=== PATIENT | male | born 1965 | race Caucasian/White ===

== ENCOUNTER → 2017-10-20 | Outpatient (CLI) | payer OTHER | LOC: FIMAGING 09:50 | PROVIDERS: ATTEND Specialist | DX: C61 Malignant neoplasm of prostate (principal) | CPT/HCPCS: A9503 ==

== ENCOUNTER 2017-12-08 06:58 | Inpatient (IN) | payer OTHER ==
--- NOTE | 2017-12-07 14:43 | GHP ---
[f rep st] PREOP HISTORY AND PHYSICAL ADMISSION DIAGNOSIS: Adenocarcinoma of the prostate. HISTORY OF PRESENT ILLNESS: This is a 52-year-old gentleman who is referred because of an elevated PSA that was 8.7 as of 10/05/2017. He had lower urinary tract symptoms on a 2/10 scale and nocturia 1 time per night. He has had a family history of prostate cancer in his father, who was diagnosed with it in his 80s. The patient has had an AUA score index of 3. He has had a transrectal ultrasound and biopsy of the prostate, and the ultrasound as of 03/2018 showed his prostate volume was 20.6. He had a Whitney score 10 prostate cancer. He has had an MRI at 10/26/2017 that was PIRADS 1. He has had a PSA density of 0.43, and a bone scan 10/20/2017 that was normal. At the present time, he is admitted for bilateral pelvic lymphadenectomy and robotic assisted radical prostatectomy. I reviewed all the tests with him. He and his appear to be well informed, and will undergo treatment. He has had Firmagon use as androgen deprivation therapy because of his high Wally score. SOCIAL HISTORY: He is a nondrinker, a former smoker. He is . ALLERGIES: None. MEDICATIONS: Include aspirin and multivitamins. PAST SURGERY HISTORY: Knee surgery, and the transrectal ultrasound biopsy of the prostate. REVIEW OF SYSTEMS: Negative cardiac, respiratory, GI and endocrine. PHYSICAL EXAMINATION: VITAL SIGNS: Stable. CHEST: Clear. HEART: Regular rate and rhythm. ABDOMEN: Normal, no organomegaly, rebound or guarding. LOWER EXTREMITIES: Normal. RECTAL: On rectal exam, it was showing that he had left greater than right side on the prostate with the asymmetry and subtle nodule and firmness noted in the left lobe. ASSESSMENT/PLAN: The pathology revealed that all cores of the left side of the prostate had cancer and it was a WHO grade group 5, Wally 5 + 5 equals 10 in 50% of the tumor in the left base, 30% left mid prostate. In the right apex, he had 2% of the tumor and the left apex 50% of the lesion was noted, and left transition zone 70% of the biopsy had cancer in it. At the present time, he is admitted for bilateral pelvic lymphadenectomy and robotic assisted radical prostatectomy. Indications, complications, and options have been discussed in detail. He appears to be well informed and will undergo the above procedure. /[id number]/MODL MTDD
[~2017-12-08 06:58] MED LIST: LIDOCAINE 1% 2 ML INJ ID PRN; LR 1,000 ML IV ONE; ceFAZolin 2 GM/SWFI 2 GM/20 ML SYR IVP ONE
--- NOTE | 2017-12-08 07:02 | PDHPUP ---
History & Physical Update H&P update statement: This history and physical update is based on an assessment of the patient which was completed after admission or registration (within 24 hours), but prior to the surgery/procedure. H&P update: H&P reviewed & patient examined, no change in patient's condition since H&P completed
--- NOTE | 2017-12-08 07:56 | PDANEPAE ---
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 ANE Past Medical History - Cardiovascular History Hx Hypertension: No Hx Arrhythmias: No Hx Chest Pain: No Hx Coronary Artery / Peripheral Vascular Disease: No Hx CHF / Valvular Disease: No Hx Palpitations: No - Pulmonary History Hx COPD: No Hx Asthma/Reactive Airway Disease: No Hx Recent Upper Respiratory Infection: No Hx Oxygen in Use at Home: No Hx Sleep Apnea: No Sleep Apnea Screening Result - Last Documented: Negative - Neurologic History Hx Cerebrovascular Accident: No Hx Seizures: No Hx Dementia: No - Endocrine History Hx Diabetes: No - Renal History Hx Renal Disorders: No - Liver History Hx Hepatic Disorders: No - Neurological & Psychiatric Hx Hx Neurological and Psychiatric Disorders: Yes Neurological / Psychiatric History Comment: ANXIETY - Cancer History Hx Cancer: Yes Cancer History Comment: PROSTATE CANCER - Congenital Disorder History Hx Congenital Disorders: No - GI History Hx Gastrointestinal Disorders: No - Other Health History Other Health History: LL varicose veins - Chronic Pain History Chronic Pain: No - Surgical History Prior Surgeries: biopsy ANE Review of Systems Review of Systems: - Exercise capacity METS (RN): 6 METS ANE Patient History - Allergies Allergies/Adverse Reactions: No Known Allergies Allergy (Verified 11/09/17 12:31) - Home Medications Home Medications: C/E/Zn/Cu/OM3/DHA/EPA/LUT/ZEAX [Preservision Areds 2 Softgel] 1 each PO DAILY [Last Taken 12/01/17] Cholecalciferol Vit D3 [Vitamin D3 (*)] 1,000 units PO DAILY 11/09/17 [Last Taken 12/01/17] Glucosamine Sulfate [Glucosamine Sulfate 500 MG (*)] 1,000 mg PO DAILY 11/09/17 [Last Taken 12/01/17] Herbals/Supplements -Info Only 1 ea PO DAILY 11/09/17 [Last Taken 12/01/17] Ibuprofen [Motrin (*)] 200 mg PO DAILY PRN 11/09/17 [Last Taken 12/01/17] Leuprolide Acetate [Lupron Depot (Lupaneta)] 22.5 mg IM Q91D 11/09/17 [Last Taken 10/27/17] Multivitamins [Multivitamin (*)] 1 each PO DAILY 11/09/17 [Last Taken 12/04/17] - NPO status NPO Status: no food or drink >8 hours NPO Since - Liquids (Date): 12/07/17 NPO Since - Liquids (Time): 00:59 NPO Since - Solids (Date): 12/07/17 NPO Since - Solids (Time): 23:30 - Anes Hx Anes Hx: no prior problems - Smoking Hx Smoking Status: Former smoker - Alcohol Use Alcohol Use: None - Family Anes Hx Family Anes Hx: none Family Hx Anesthesia Complications: none ANE Labs/Vital Signs - Vital Signs Blood Pressure: 118/72 Heart Rate: 66 Respiratory Rate: 16 O2 Sat (%): 97 Height: 177.8 cm Weight: 72.575 kg ANE Physical Exam - Airway Neck exam: FROM Mallampati Score: Class 2 Mouth exam: normal dental/mouth exam - Pulmonary Pulmonary: no respiratory distress, clear to auscultation - Cardiovascular Cardiovascular: regular rate and rhythym, no murmur, rub, or gallop - ASA Status ASA Status: II ANE Anesthesia Plan Anesthesia Plan: general endotracheal anesthesia
[2017-12-08] MEDS ORDERED: MIDAZOLAM 2 MG/2 ML VIAL IVP ONE (07:57)
[2017-12-08] MEDS ORDERED: fentaNYL 100 MCG/2 ML INJ ONE ×3 (08:00→11:31)
[2017-12-08] MEDS ORDERED: PROPOFOL 200 MG/20 ML VIAL ONE (08:00)
[2017-12-08] MEDS ORDERED: BUPIVACAINE 0.5% 30 ML SDV ONE (08:07)
[2017-12-08] MEDS ORDERED: ROCURONIUM 50 MG/5 ML VIAL ONE (09:18)
[2017-12-08] MEDS ORDERED: LIDOCAINE 2% 100 MG/5 ML SYR ONE (09:18)
[2017-12-08] MEDS ORDERED: ROCURONIUM 100 MG/10 ML VIAL ONE (09:18)
[2017-12-08] MEDS ORDERED: DEXAMETHASONE 4 MG/ML VIAL ONE (09:29)
[2017-12-08] MEDS ORDERED: ONDANSETRON 4 MG/2 ML VIAL ONE (09:29)
[2017-12-08] MEDS ORDERED: THROMBIN(HUM PLAS)/FIBRINOG/CA 5 ML VIAL TP ONE (10:24)
[2017-12-08] MEDS ORDERED: SUGAMMADEX SODIUM 200 MG/2 ML VIAL IVP ONE (11:00)
[2017-12-08] MEDS ORDERED: NALOXONE HCL 0.4 MG/ML INJ IVP PRN ×2 (11:23→11:46)
[2017-12-08] MEDS ORDERED: HYDROCODONE/APAP 5/325 TAB PO PRN (11:23)
[2017-12-08] MEDS ORDERED: ONDANSETRON 4 MG/2 ML VIAL IVP PRN ×2 (11:23→11:42)
[2017-12-08] MEDS ORDERED: OXYCODONE/APAP 5/325 TAB PO PRN (11:23)
[2017-12-08] MEDS ORDERED: ACETAMINOPHEN 500 MG TAB PO PRN (11:23)
--- NOTE | 2017-12-08 11:24 | POSTANESTH ---
Post Anesthetic Evaluation Cardiovascular Status: Normal, Stable, Similar to Pre-Op Cond Respiratory Status: Normal, Stable, Similar to Pre-op Cond. Level of Consciousness/Mental Status: Can Participate in Eval, Alert and Oriented Pain Control: Adequate, Prn Tx Ordered Nausea/Vomiting Control: Adequate, Prn Tx Ordered Complications Possibly Related to Anesthesia: None Noted
[2017-12-08] MEDS: fentaNYL 100 MCG/2 ML INJ IVP PRN ×2 (11:32→11:47)
[2017-12-08] MEDS ORDERED: ACETAMINOPHEN 325 MG TAB PO PRN (11:42)
[2017-12-08] MEDS ORDERED: ONDANSETRON DISINTEGRATING 4 MG TAB PO PRN (11:42)
[2017-12-08] MEDS ORDERED: ZOLPIDEM TARTRATE 5 MG TAB PO PRN (11:42)
--- NOTE | 2017-12-08 11:48 | POSTOPPROG ---
Post Op Note Date of Operation: 12/08/17 Surgeon: Tevin Garber Bleacher Sulfite Pulp: Ric Anesthesiologist: Zuleima Anesthesia: GET(General Endotracheal) Pre-op Diagnosis: prostate cancer Procedure: RA RRP and PLND Inf/Abcess present in the surg proc area at time of surgery?: No EBL: 50-100 Complications: none Drains: Oj Chicas Specimen(s): sent, dictated op note
--- NOTE | 2017-12-08 11:53 | GOP ---
[f rep st] OPERATIVE REPORT DATE OF OPERATION: 12/08/2017 SURGEON: Tevin Garber MD CUSTOMER SERVICE ADVOCATE: Christina Larios CFA. ANESTHESIA: General anesthesia. PREOPERATIVE DIAGNOSIS: Adenocarcinoma of the prostate. POSTOPERATIVE DIAGNOSIS: Adenocarcinoma of the prostate, with hormonal androgen deprivation therapy. PROCEDURE PERFORMED: FINDINGS: INDICATIONS: This gentleman had a [place] score 10 prostate cancer and we reviewed all of his option s and at the present time he is undergoing bilateral pelvic lymphadenectomy and radical retropubic pr ostatectomy. Indication, complications, and options discussed. He is well-informed. Tried to answe r all of his questions to best of my ability. DESCRIPTION OF PROCEDURE: After general anesthesia and being prepped and draped in normal sterile fa shion in the standard robot position, the intraabdominal space was insufflated with a Veress needle t o 15 mmHg pressure of CO2, and then three 8 mm ports and a 12 mm port were placed Strategically for t he life science research assistant and the robot arms, and then at that point I did a posterior approach initially by ident ifying the vas deferens, went into the prostate, dissect the peritoneum over that and then dissected the anterior, cut in between the rectum and prostate, Denonvilliers fascia and fat plane and dissecte d out that and then the ampulla vas deferens were transected after electrocautery and hemostasis was noted. The ampulla vas deferens dissected out on both the right and left sides and Hem-o-kodak's were used for hemostasis. At that point dropped the bladder down in the standard fashion and identified t he endopelvic fascia which was incised and opened. The puboprostatic's were taken down sharply. It should be said he had a lot of kind of fibrous inflammation on the left apical side, but the dissecti on grossly appeared to be free of any tumor. Then, at that point, the deep dorsal vein was ligated w ith 0 Vicryl M-stitch. Hemostasis was noted. Then transected the bladder neck. Brought the seminal vesicle ampulla anterior to the bladder neck opening and made meticulous care not to buttonhole the left bladder neck area, because on the ultrasound it appeared that the tumor abutted the bladder neck . It did not appear to invade into the detrusor muscle and during the dissection tried to make sure that there was normal-appearing tissue and tried to leave nothing suggestive of grossly to the bladder neck and then carried the dissection out lateral on the left side. Hem-o-kodak's were use d for hemostasis and then on the right side similar procedure was done and, then at that point, I tra nsected the apical part of the prostate from the urethra and once again tried to make meticulous care not to leave any gross disease behind and so the margins grossly looked clear. At that point, the R occo stitch was utilized of a V-loc and then the anastomosis performed with 4-0 Monocryl. It was christal guido watertight, bridged with a Medrano catheter and irrigated clear. The pelvic lymph node dissection was carried out on both the right and left sides robotically, using dissection margin of the external iliac vein up to its bifurcation down to the dissection was to the obturator nerve. There was no ne ural vascular trauma encountered during this procedure. Hemostasis and provided with Hem- o-kodak's. Grossly the nodes appeared to have no malignancy. At that point, brought the specimens out through a bag and that bag eventually was brought out through the midline camera port. I did place a Oj-Chicas drain in the space of Retzius and Evicel was used to reinforce the urethrovesical franco stomosis. He tolerated the procedure well. Estimated blood loss of 100 mL per anesthesia assessment and specimen sent to Pathology. When I grossly looked at the specimen there did not appear to be an y gross disease beyond the prostate and seminal vesicles appeared to be palpably normal. At that poi nt, the specimen bag was brought out through the camera port. We did do a fascial closure device of the life science research assistant port with an 0 Vicryl. The anterior rectus sheath was approximated with a running 0 Vi cryl. The subcutaneous tissue was hemostatic and skin was closed with 4-0 Monocryl and Marcaine was used for local field block. Drain was sewn in place with a 3-0 silk. He tolerated the procedure wel l. He will be admitted for postoperative care. I will discuss the findings with his family. /[id number]/MODL
[2017-12-08] MEDS ORDERED: HYDROmorphONE/DILAUDID 1 MG/ML INJ ONE (12:02)
[2017-12-08] MEDS: HYDROmorphONE/DILAUDID 1 MG/ML INJ IVP PRN ×2 (12:03→12:29)
[2017-12-08 12:32] LABS: PLATELET COUNT 208 10^3/uL (150-400)
[2017-12-08] MEDS: D5W 1/2 NS W/ 20 KCl/L 1,000 ML IV SCH ×2 (14:04→23:42)
[2017-12-08] MEDS: HYDROmorphONE/DILAUDID 6 MG/30 ML PCA IV PRN (14:04)
[2017-12-09] MEDS: D5W 1/2 NS W/ 20 KCl/L 1,000 ML IV SCH ×2 (09:19→19:18)
[2017-12-09] MEDS: HYDROmorphONE/DILAUDID 6 MG/30 ML PCA IV PRN (09:59)
--- NOTE | 2017-12-09 16:45 | ASMTCMCOM ---
CM Note CM Note Notes: Current Discharge Plan: Likely home independently. Reviewed patient's chart for discharge planning needs. Patient has very supportive , both very informed. Anticipate patient will be able to discharge home independently with support of family. Case Management available for any changes/needs. Date Signed: 12/09/2017 04:44 PM Electronically Signed By:Agnieszka Camacho RN
--- NOTE | 2017-12-09 18:23 | SOAPPROG ---
SOAP Progress Note Assessment/Plan: Assessment: Prostate cancer Acute POD 1, continue drainage and post op care Plan: as noted 12/09/17 18:22 Subjective: ok Objective: Vital Signs Temp Pulse Resp BP Pulse Ox 36.9 C 53 L 15 125/80 H 95 12/09/17 17:33 12/09/17 17:33 12/09/17 17:33 12/09/17 17:33 12/09/17 17:33 Laboratory Results 12/09/17 15:02 12/09/17 15:02 12/08/17 12/09/17 12/10/17 05:59 05:59 05:59 Intake Total 4324.8 Output Total 1805 2400 Balance 2519.8 -2400 Physical Exam - Physical Exam General Appearance: alert Neck: supple Respiratory: No respiratory distress Cardiac/Chest: regular rate, rhythm Back: No CVA tenderness Extremities: No calf tenderness Neuro/Psych: alert, oriented x 3 ICD10 Worksheet Patient Problems: Problems Problem Status Onset Prostate cancer Acute - ICD10 Problem Qualifiers (1) Prostate cancer
[2017-12-10] MEDS: D5W 1/2 NS W/ 20 KCl/L 1,000 ML IV SCH (04:54)
--- NOTE | 2017-12-10 10:02 | SOAPPROG ---
SOAP Progress Note Assessment/Plan: Assessment: Prostate cancer Acute POD , continue drainage and post op care Plan: DC soon 12/10/17 10:01 Subjective: ok, better today Objective: Vital Signs Temp Pulse Resp BP Pulse Ox 36.7 C 67 19 114/59 L 95 12/10/17 04:00 12/10/17 08:00 12/10/17 08:00 12/10/17 08:00 12/10/17 08:00 Laboratory Results 12/10/17 04:17 12/10/17 04:17 12/09/17 12/10/17 12/11/17 05:59 05:59 05:59 Intake Total 4324.8 3948.8 Output Total 1805 8455 Balance 2519.8 -4481.2 Physical Exam - Physical Exam General Appearance: alert Neck: supple Respiratory: No respiratory distress Cardiac/Chest: regular rate, rhythm Abdomen: soft Male Genitalia: normal genitalia Back: No CVA tenderness Neuro/Psych: alert, oriented x 3 ICD10 Worksheet Patient Problems: Problems Problem Status Onset Prostate cancer Acute - ICD10 Problem Qualifiers (1) Prostate cancer
[2017-12-10] MEDS: OXYCODONE/APAP 5/325 TAB PO PRN ×2 (15:17→20:20)
[2017-12-11] MEDS: OXYCODONE/APAP 5/325 TAB PO PRN (02:23)
[2017-12-11 07:38] VITALS: TEMP 98.1
--- NOTE | 2017-12-11 11:21 | SOAPPROG ---
SOAP Progress Note Assessment/Plan: Assessment: Prostate cancer Acute POD 3, continue drainage and post op care Plan: DC home 12/11/17 11:20 Subjective: better Objective: Vital Signs Temp Pulse Resp BP Pulse Ox 36.7 C 57 L 16 95/64 L 91 L 12/11/17 07:36 12/11/17 07:36 12/11/17 07:36 12/11/17 07:36 12/11/17 07:36 Laboratory Results 12/10/17 04:17 12/10/17 04:17 12/10/17 12/11/17 12/12/17 05:59 05:59 05:59 Intake Total 3948.8 1320 Output Total 8430 5550 850 [facility] -4481.2 -4230 -850 Physical Exam - Physical Exam General Appearance: alert Respiratory: No respiratory distress Cardiac/Chest: regular rate, rhythm Abdomen: soft Back: No CVA tenderness Neuro/Psych: alert, oriented x 3 ICD10 Worksheet Patient Problems: Problems Problem Status Onset Prostate cancer Acute - ICD10 Problem Qualifiers (1) Prostate cancer
[2017-12-11 11:33] VITALS: BP 111/68; PULSE 79; RESP 18; O2SAT 94
--- NOTE | 2017-12-16 08:18 | GDS ---
[f rep st] DISCHARGE SUMMARY ADMISSION DIAGNOSIS: Adenocarcinoma of the prostate. DISCHARGE DIAGNOSIS: Adenocarcinoma of the prostate. PROCEDURE DURING HOSPITALIZATION: Robotic-assisted radical prostatectomy with pelvic lymph node diss ection. HOSPITAL COURSE: The gentleman admission, had the above procedure performed. He is disch arged home with his Oj-Chicas drain and instructions on care of that. Medrano catheter is draining , and he has no major complaints. Pathology is pending on the prostate. The lymph nodes were negati ve. He has been informed. Follow up with me in the office the following Tuesday for assessment of the HAO drainage. /[id number]/MODL
== END 2017-12-11 13:25 | disposition home or self-care (01) | DRG 708 ==
LOC: F3N 06:58 → F1N 11:42
PROVIDERS: ADMIT Specialist; ATTEND Specialist
DX: C61 Malignant neoplasm of prostate (principal); Z80.42 Family history of malignant neoplasm of prostate; Z87.891 Personal history of nicotine dependence
CPT/HCPCS: J0690; J1100; J1170; J2001; J2250; J2405; J2704; J3010

== ENCOUNTER 2018-02-17 07:41 | Day surgery (SDC) | payer OTHER ==
[2018-02-17] MEDS ORDERED: NALOXONE HCL 0.4 MG/ML INJ IVP PRN (07:47)
[2018-02-17] MEDS ORDERED: MIDAZOLAM 2 MG/2 ML VIAL IVP PRN (07:47)
[2018-02-17] MEDS ORDERED: FLUMAZENIL 0.5 MG/5 ML MDV IVP PRN (07:47)
[2018-02-17] MEDS ORDERED: MEPERIDINE 25 MG/ML SYR IVP PRN (07:47)
[2018-02-17] MEDS ORDERED: fentaNYL 100 MCG/2 ML INJ IVP PRN (07:47)
[2018-02-17] MEDS ORDERED: NS 1,000 ML IV SCH (08:00)
[2018-02-17] MEDS ORDERED: HEPARIN 50,000 UNIT/10 ML VIAL ONE (08:44)
[2018-02-17] MEDS ORDERED: CEFAZOLIN 1 GM/DEXTROSE/50 ML BAG IV ONE (09:09)
--- NOTE | 2018-02-17 09:18 | PDPROPOC ---
Sedation Plan of Care ASA Classification: ASA 2 Planned drugs: fentanyl, midazolam Mallampati Score: Class 1 Mallampati Reference Image:
--- NOTE | 2018-02-17 09:18 | PDGENHP ---
History & Physical Chief Complaint: starting immunotherapy History of Present Illness: prostate cancer, starting leukopheresis Relevant Physical Exam: nad Cardiorespiratory Assessment: rrr, wl wob
[2018-02-17] MEDS ORDERED: LIDOCAINE 1% 300 MG/30 ML SDV ONE (09:23)
--- NOTE | 2018-02-17 09:52 | PDRADPN ---
Radiology Procedure Note Date of Procedure: 02/17/18 Radiologist: Mal Pickett Anesthesia: IV Sedation Pre-op Diagnosis: prostate ca Post-op Diagnosis: same Indication: starting leukopheresis Procedure: RIJ permcath Finding(s): 23cm cath optimally positioned at upper RA. ok to use Inf/Abcess present in the surg proc area at time of surgery?: No EBL: Minimal Complications: none
[2018-02-17] MEDS ORDERED: ONDANSETRON 4 MG/2 ML VIAL IVP PRN (09:53)
[2018-02-17] MEDS ORDERED: ACETAMINOPHEN 325 MG TAB PO PRN (09:53)
[2018-02-17 11:02] VITALS: BP 100/69
== END 2018-02-17 11:20 | disposition home or self-care (01) ==
LOC: FIMAGING 07:41
PROVIDERS: ATTEND Specialist
PROC: 02H633Z Insertion of Infusion Device into Right Atrium, Percutaneous Approach (ICD-10-PCS; principal; 2018-02-17 10:07)
PROC: 0JH60XZ Insertion of Tunneled Vascular Access Device into Chest Subcutaneous Tissue and Fascia, Open Approach (ICD-10-PCS; principal; 2018-02-17 10:07)
DX: C61 Malignant neoplasm of prostate (principal)
CPT/HCPCS: C1750; J0690; J1644; J2250; J2310; J3010

== ENCOUNTER 2018-03-03 09:53 | Inpatient (IN) | payer OTHER ==
--- NOTE | 2018-03-03 10:00 | CPEKG ---
Heart Rate: 70 RR Interval: 857 P-R Interval: 144 QRSD Interval: 80 QT Interval: 344 QTC Interval: 372 P Thorp: 63 QRS Thorp: 49 T Wave Thorp: 2 EKG Severity - BORDERLINE ECG - EKG Impression: SINUS RHYTHM EKG Impression: BORDERLINE T WAVE ABNORMALITIES Electronically Signed By: Nain Betts 06-Mar-2018 09:01:34
[2018-03-03] MEDS ORDERED: NS 1,000 ML IV ONE (10:02)
--- NOTE | 2018-03-03 10:25 | EDPHY ---
HPI/HX/ROS/PE/MDM Narrative: CHIEF COMPLAINT: Chills after immunotherapy, weakness, hypotension HPI: The patient is a 52 y/o male with prostate carcinoma arriving from his urologist 's office for evaluation of hypotension during a clinic visit this morning and chills and rigors following his immunotherapy infusion yesterday. Yesterday afternoon he received his second dose of immunotherapy and within a couple hours felt extreme malaise with chills, rigors, and subjective fever. He rested throughout the evening and noticed he had decreased urination. This morning while showering he "felt weak as a kitten" and also noticed he had gained 5lbs since yesterday. He was seen at his urologist's office this morning for evaluation of elevated an PSA. While there, they recorded his BP at 82/57 and 99 /62. Due to this and his symptoms following the infusion, they referred him to the ED for evaluation. REVIEW OF SYSTEMS: Aside from elements discussed in the HPI, a comprehensive 10-point review of systems was reviewed and is negative. PMH: Prostate carcinoma post robotic radical prostatectomy. Chronic left varicose veins. Prior medical records reviewed including urology note from today 03/03/18. SOCIAL HISTORY: Former smoker. No illicit drug use. Lives in [place]. Employed. . Urologist: Dr. Garber. PHYSICAL EXAM: General:Patient is alert, in no acute distress. BP 104/61. ENT:Eyes are normal to inspection. ENT inspection normal. Neck: Normal inspection. Full range of motion. Respiratory:No respiratory distress. Breath sounds normal bilaterally. Cardiovascular: Regular rate and rhythm. Strong peripheral pulses. Normal cap refill. Abdomen:The abdomen is nontender to palpation. There are no peritoneal signs. Back: Normal to inspection. No tenderness to palpation. Skin: Normal color. No rash. Warm and dry. Extremities: Normal appearance. Full range of motion. Neuro: Oriented x3. Normal motor function. Normal sensory function. ED Course: This is a 52 y/o male with prostate carcinoma currently undergoing immunotherapy infusions who presents with chills, rigors, and malaise following immunotherapy infusion yesterday and hypotension recorded during urology clinic visit today. Exam is unremarkable. BP here is 104/61. Symptoms likely related to immunotherapy, but will evaluate for other infectious and cardiopulmonary causes as well. Plan for IV, labs, UA, EKG, chest x-ray. The 12 lead EKG was interpreted by myself. See hard copy and/or "tracemaster" electronic copy for interpretation. Chest x-ray: negative UA indicates UTI. D-dimer elevated at 17.82. Creatinine elevated at 1.8, limiting ability to perform CTA. Patient will require admission for hydration and further evaluation of this. Reassessed patient and discussed recommendations. He agrees to admission. 1gm IV Ceftriaxone ordered for UTI. 1120: Consulted with Dr. Garber, urology. He agrees with admission and will consult as needed. Spoke with hospitalist service. Dr. Sanders accepts admission. I suspect patient is suffering from UTI and early mild sepsis. I see no signs of septic shock, ACS, CHF or PNA. I am unable to perform CTA at this time to rule out PE. - Data Points Imaging Results: Imaging Impressions Chest X-Ray 03/03/18 10:03 Impression: 1. No acute findings in the chest. 2. Degenerative change in the shoulders with possible loose bodies in the right shoulder. Imaging: I viewed and interpreted images myself Laboratory Results: Laboratory Results 03/03/18 10:00 03/03/18 10:00 03/03/18 03/03/18 03/03/18 10:27 10:00 10:00 WBC RBC Hgb Hct MCV MCH MCHC RDW Plt Count MPV Neut % (Auto) Lymph % (Auto) [place] % (Auto) Eos % (Auto) Baso % (Auto) Nucleat RBC Rel Count Absolute Neuts (auto) Absolute Lymphs (auto) Absolute Monos (auto) Absolute Eos (auto) Absolute Basos (auto) Absolute Nucleated RBC Immature Gran % Seg Neutrophils % Band Neutrophils % Lymphocytes % Monocytes % Eosinophils % Basophils % Metamyelocytes % Myelocytes % Promyelocytes % Blast Cells % Immature Gran # Absolute Seg Neuts Absolute Band Neuts Absolute Lymphocytes Absolute Monocytes Absolute Eosinophils Absolute Basophils Absolute Metamyelocyte Absolute Myelocytes Absolute Promyelocytes Absolute Plasma Cells RBC/WBC/PLT Morphology Absolute Blast Cells Plasma Cells % Platelet Estimate D-Dimer 17.61 ug/mLFEU H ug/mLFEU (0.00-0.50) VBG Lactic Acid 1.2 mmol/L mmol/L (0.7-2.1) Sodium Potassium Chloride Carbon Dioxide Anion Gap BUN Creatinine Estimated GFR Glucose Calcium Troponin I Urine Color LARRY Urine Appearance HAZY Urine pH 5.0 (5.0-7.5) Ur Specific [place] 1.030 (1.002-1.030) Urine Protein 1+ H (NEGATIVE) Urine Ketones NEGATIVE (NEGATIVE) Urine Blood 1+ H (NEGATIVE) Urine Nitrate NEGATIVE (NEGATIVE) Urine Bilirubin NEGATIVE (NEGATIVE) Urine Urobilinogen 2.0 EU H EU (0.2-1.0) Ur Leukocyte Esterase NEGATIVE (NEGATIVE) Urine RBC 3-5 /hpf H /hpf (0-3) Urine WBC 50-182 /hpf H /hpf (0-3) Ur Epithelial Cells TRACE /lpf /lpf (NONE-1+) Hyaline Casts >182 /lpf H /lpf (0-1) Urine Mucus 3+ /lpf H /lpf (NONE-1+) Urine Glucose NEGATIVE (NEGATIVE) 03/03/18 03/03/18 10:00 10:00 WBC 13.65 10^3/uL H 10^3/uL (3.80-9.50) RBC 4.79 10^6/uL 10^6/uL (4.40-6.38) Hgb 14.4 g/dL g/dL (13.7-17.5) Hct 41.4 % % (40.0-51.0) MCV 86.4 fL fL (81.5-99.8) MCH 30.1 pg pg (27.9-34.1) MCHC 34.8 g/dL g/dL (32.4-36.7) RDW 13.2 % % (11.5-15.2) Plt Count TNP MPV TNP Neut % (Auto) Not Reported Lymph % (Auto) Not Reported [place] % (Auto) Not Reported Eos % (Auto) Not Reported Baso % (Auto) Not Reported Nucleat RBC Rel Count Not Reported Absolute Neuts (auto) Not Reported Absolute Lymphs (auto) Not Reported Absolute Monos (auto) Not Reported Absolute Eos (auto) Not Reported Absolute Basos (auto) Not Reported Absolute Nucleated RBC Not Reported Immature Gran % Not Reported Seg Neutrophils % 67.3 % % Band Neutrophils % 27.7 % % Lymphocytes % 2.0 % % Monocytes % 2.0 % % Eosinophils % 1.0 % % Basophils % 0 % % Metamyelocytes % 0 % % Myelocytes % 0 % % Promyelocytes % 0 % % Blast Cells % 0 % % Immature Gran # Not Reported Absolute Seg Neuts 9.19 10^/uL H 10^/uL (1.70-6.50) Absolute Band Neuts 3.78 10^3/uL H 10^3/uL (0.00-0.70) Absolute Lymphocytes 0.27 10^3/uL L 10^3/uL (1.00-3.00) Absolute Monocytes 0.27 10^3/uL L 10^3/uL (0.30-0.80) Absolute Eosinophils 0.14 10^3/uL 10^3/uL (0.03-0.40) Absolute Basophils 0.00 10^3/uL L 10^3/uL (0.02-0.10) Absolute Metamyelocyte 0.00 10^3/mL 10^3/mL (0.00-0.00) Absolute Myelocytes 0.00 10^3/mL 10^3/mL (0.00-0.00) Absolute Promyelocytes 0.00 10^3/uL 10^3/uL (0.00-0.00) Absolute Plasma Cells 0.00 10^3/uL 10^3/uL (0.00-0.00) RBC/WBC/PLT Morphology NORMAL (NORMAL) Absolute Blast Cells 0.00 10^3/uL 10^3/uL (0.00-0.00) Plasma Cells % 0 % % Platelet Estimate TNP D-Dimer VBG Lactic Acid Sodium 136 mEq/L mEq/L (135-145) Potassium 4.2 mEq/L mEq/L (3.5-5.2) Chloride 103 mEq/L mEq/L (97-110) Carbon Dioxide 22 mEq/l mEq/l (22-31) Anion Gap 11 mEq/L mEq/L (8-16) BUN 33 mg/dL H mg/dL (7-23) Creatinine 1.8 mg/dL H mg/dL (0.7-1.3) Estimated GFR 40 Glucose 103 mg/dL H mg/dL (70-100) Calcium 8.2 mg/dL L mg/dL (8.5-10.4) Troponin I < 0.012 ng/mL ng/mL (0.000-0.034) Urine Color Urine Appearance Urine pH Ur Specific [place] Urine Protein Urine Ketones Urine Blood Urine Nitrate Urine Bilirubin Urine Urobilinogen Ur Leukocyte Esterase Urine RBC Urine WBC Ur Epithelial Cells Hyaline Casts Urine Mucus Urine Glucose Medications Given: Discontinued Medications Sodium Chloride (Ns) 1,000 mls @ 0 mls/hr IV EDNOW ONE; Wide Open PRN Reason: Protocol Stop: 03/03/18 10:03 Last Admin: 03/03/18 10:07 Dose: 1,000 mls General Time Seen by Provider: 03/03/18 10:01 Initial Vital Signs: Initial Vital Signs Temperature (C) 36.4 C 03/03/18 09:56 Heart Rate 74 03/03/18 09:56 Respiratory Rate 12 03/03/18 09:56 Blood Pressure 104/61 03/03/18 09:56 O2 Sat (%) 97 03/03/18 09:56 O2 Delivery Mode Room Air Allergies/Adverse Reactions: No Known Allergies Allergy (Verified 03/03/18 09:55) Home Medications: Medication Instructions Recorded Herbals/Supplements -Info Only 1 ea PO DAILY 11/09/17 Leuprolide Acetate [Lupron Depot 22.5 mg IM Q90D 11/09/17 (Lupaneta)] Ibuprofen [Motrin (*)] 600 mg PO DAILY PRN 03/03/18 Provenge 0 units IV TH 03/04/18 Cefdinir [Omnicef (*)] 300 mg PO BID #10 cap 03/05/18 Departure - Departure Disposition: [facility] Inpatient Acute Clinical Impression: Renal insufficiency, Elevated d-dimer, Prostate cancer UTI (urinary tract infection) Qualifiers: Urinary tract infection type: site unspecified Hematuria presence: with hematuria Qualified Code(s): N39.0 - Urinary tract infection, site not specified Condition: Fair Report Scribed for: Chris Kan Report Scribed by: Miladis Mckinley Date of Report: 03/03/18 Time of Report: 10:10 Physician Review and Approval Statement: Portions of this note were transcribed by an ED scribe. I personally performed the history, physical exam, and medical decision making; and confirm the accuracy of the information in the transcribed note.
[2018-03-03] MEDS ORDERED: ONDANSETRON 4 MG/2 ML VIAL IVP PRN (11:35)
[2018-03-03] MEDS ORDERED: ONDANSETRON DISINTEGRATING 4 MG TAB PO PRN (11:35)
[2018-03-03] MEDS ORDERED: IBUPROFEN 200 MG TAB PO PRN (12:23)
[2018-03-03] MEDS ORDERED: LEUPROLIDE ACETATE 22.5 MG IM SCH ×2 (12:30)
[2018-03-03] MEDS: NS 1,000 ML IV SCH ×2 (12:42→20:24)
--- NOTE | 2018-03-03 13:16 | SOAPPROG ---
SOAP Progress Note Assessment/Plan: Assessment: Prostate cancer Acute on LHRH and provenge with plans for IMRT in May Renal insufficiency Acute dehydration most likely contributing factor Elevated d-dimer Acute blood clot yet may be related to central line catheter, agree with pulmonary angio after hydration UTI (urinary tract infection) Acute not sure with nitrate neg and micro neg yet appropriate antibx coverage as planned Plan: Will follow peripherally and appreciate care provided by [facility] health care staff 03/03/18 13:12 Subjective: some hypotension in office and no pain noted Objective: Vital Signs Temp Pulse Resp BP Pulse Ox 36.5 C 71 17 104/69 99 03/03/18 12:19 03/03/18 12:19 03/03/18 12:19 03/03/18 12:19 03/03/18 12:19 03/02/18 03/03/18 03/04/18 05:59 05:59 05:59 Intake Total 1000 Balance 1000 Physical Exam - Physical Exam General Appearance: alert Respiratory: No respiratory distress Cardiac/Chest: regular rate, rhythm Abdomen: soft Back: No CVA tenderness Neuro/Psych: alert, oriented x 3 ICD10 Worksheet Patient Problems: Problems Problem Status Onset Prostate cancer Acute Renal insufficiency Acute Elevated d-dimer Acute UTI (urinary tract infection) Acute
--- NOTE | 2018-03-03 13:25 | GHP ---
[f rep st] HISTORY AND PHYSICAL DATE OF ADMISSION: 03/03/2018 CHIEF COMPLAINT: Weakness and hypotension. HISTORY OF PRESENT ILLNESS: The patient is a 52-year-old male with a history of prostate carcinoma, being sent in from Dr. Garber, his urologist's office, after being evaluated and noted to have hypotension during his clinic visit. The patient did receive an immunotherapy infusion yesterday, 1 day prior. He tells me that he felt terrible. He says that he had a fever. He was able to sleep some last evening; however, he felt terrible, weak and he had very little urine output overnight. He was seen at the urologist's office this morning where he was noted to have a blood pressure of 82/57. The patient was sent to the emergency room for further evaluation. He denies any nausea, vomiting, or diarrhea. He denies any shortness of breath, dyspnea or chest pain. His only complaint is being weak, not feeling well, and he has subjective fevers with chills and rigors. REVIEW OF SYSTEMS: A 10-point review of systems is negative other than noted in the HPI. PAST MEDICAL HISTORY: Prostate carcinoma post robotic radical prostatectomy. PAST SURGICAL HISTORY: Again prostatectomy. SOCIAL HISTORY: The patient is a former smoker. He lives in [place]. He is . He is sober with no illicit drugs. PHYSICAL EXAMINATION: GENERAL: The patient is alert, oriented, no acute distress VITAL SIGNS: Afebrile at 36.5, pulse is 71, respiratory rate 17, blood pressure is 104/69. He is saturating 99% on room air. HEENT: Normocephalic, atraumatic. Mucosal membranes are moist. Pupils equal, round, reactive to light. RESPIRATORY: Lungs are clear to auscultation bilaterally. No rhonchi or wheezes appreciated. CARDIOVASCULAR: Regular rate and rhythm. No gallop or murmur noted. GASTROINTESTINAL/ABDOMEN: Bowel sounds are positive. Soft and nontender. There is no guarding or rigidity noted. EXTREMITIES: Are within normal limits. There is no clubbing or cyanosis appreciated. SKIN: Without rashes or lesions. NEUROLOGIC: The patient is focally intact. FAMILY HISTORY: Noncontributory. LABORATORY EVALUATION: White count of 13.65 with a D-dimer of 17.61, elevated creatinine 1.8 with a BUN of 33, an abnormal urinalysis. RADIOLOGICAL STUDIES: EKG noting sinus rhythm. Chest x-ray which has been personally reviewed. No acute findings. HOME MEDICATIONS: 1. Vitamin. 2. Glucosamine. 3. Lupron. ALLERGIES: None. ASSESSMENT AND PLAN: A 52-year-old male who presents to the emergency room with complaints of weakness. He was evaluated and diagnosed with: 1. Urinary tract infection. At the time of admission, the patient received IV Rocephin. We will continue this. Urine culture is pending and we will await results for further antibiotic indication. 2. Elevated D-dimer. The etiology of this is unclear. The patient is not tachycardic or short of breath. He is not hypoxic. We will defer any further V /Q or ultrasound at this time given the patient's renal function and lack of symptoms regarding complications of an elevated D-dimer. If his renal function improves, consider CT angio of his chest or if symptoms arise consider ultrasound of his extremities. 3. Acute renal failure. Again, this is in the setting of recent immunotherapy treatment. We will hydrate the patient overnight and recheck his laboratory value in the morning. 4. Leukocytosis in the setting of acute infectious process. 5. Disposition. The patient will be admitted under observation status. 6. Deep venous thrombosis prophylaxis. Lovenox has been initiated. I have discussed the patient's care with Dr. Kna in the emergency room and will sign the patient out to [place] hospitalist tomorrow. /[id number]/MODL MTDD
[2018-03-03] MEDS: ACETAMINOPHEN 325 MG TAB PO PRN ×3 (15:56→23:59)
[2018-03-03] MEDS: IBUPROFEN 200 MG TAB PO PRN (22:01)
[2018-03-04] MEDS: NS 1,000 ML IV SCH (04:39)
[2018-03-04] MEDS: IBUPROFEN 200 MG TAB PO PRN (04:39)
[2018-03-04 05:13] LABS: PLATELET COUNT 99 10^3/uL (150-400)
[2018-03-04] MEDS: ACETAMINOPHEN 325 MG TAB PO PRN ×3 (09:00→21:56)
[2018-03-04] MEDS ORDERED: Herbals/Supplements -Info Only PO SCH (09:00)
[2018-03-04] MEDS ORDERED: ENOXAPARIN 30 MG/0.3 ML SYR SC SCH (09:00)
[2018-03-04] MEDS: ENOXAPARIN 40 MG/0.4 ML SYR SC SCH (09:01)
--- NOTE | 2018-03-04 11:02 | HOSPPROG ---
Hospitalist Progress Note Assessment/Plan: 52 yo male sent from Dr. Peoples office due to Hypotension and UTI #Likely sepsis (hypotension, leukocytosis, acute renal failure, infection, tachycardia) #Hypotension, BP still soft but improving #Peripheral edema, likely due to volume administration #elevated D-Dimer #UTI #Prostate Ca #acute renal failure Plan: -the pt has multiple reasons for an elevated D-Dimer. He had some sob and cp yesterday which was transient. He is on RA, currently with no cp or any resp sx' s. As he is not symptomatic, I have a low suspicion for P.E. Will recheck D- Dimer today, if trending down, then likely due to sepsis/infection. If not improving, then proceed with CTA now that Cr is better -Trial off IVF as he has some edema -Cont Rocephin, await cultures -Stop Ibuprofen -Lovenox for DVT proph -change to inpatient Subjective: Feels better. no cp or sob. no n/v. on RA Objective: Vital Signs Temp Pulse Resp BP Pulse Ox 36.5 C 80 17 107/65 95 03/04/18 08:40 03/04/18 08:40 03/04/18 08:40 03/04/18 08:40 03/04/18 08:40 Laboratory Results 03/04/18 04:08 03/04/18 04:08 03/03/18 03/04/18 03/05/18 05:59 05:59 05:59 Intake Total 1425 Output Total 1450 950 Balance -25 -950 - Physical Exam Constitutional: no apparent distress Eyes: PERRL Ears, Nose, Mouth, Throat: moist mucous membranes, hearing normal Cardiovascular: regular rate and rhythym, edema (swollen hands bilaterally) Respiratory: no respiratory distress, no rales or rhonchi, clear to auscultation Gastrointestinal: normoactive bowel sounds, soft, non-tender abdomen Skin: warm Musculoskeletal: No generalized weakness Neurologic: AAOx3 Psychiatric: interacting appropriately, not anxious, not encephalopathic Lymph, Heme, Immunologic: No petechiae ICD10 Worksheet Patient Problems: Problems Problem Status Onset Elevated d-dimer Acute Prostate cancer Acute Renal insufficiency Acute UTI (urinary tract infection) Acute
--- NOTE | 2018-03-04 11:40 | PDMN ---
Medical Necessity Medical necessity: C/M review: Patient meets INPT criteria under MCG M-300 Urinary tract infection: Acute and persistent likely sepsis (hypotension, leukocytosis, acute renal failure, tachycardia), WBC 13.65, 9.41, 8.25, elevated D-Dimer 17.61, BUN 33, 21, 19, Cr 1.8, 1.2, 1.1, Ca 8.2, 7.6, 7.8, CO2 22, 20, 20, blood cultures pending, 38.9 T max, heart rate 70-104, 03/03/2018 BP 112/59, 95/59, 03/04/2018 BP 103/55 peripheral edema likely due to volume administration, urinary tract infection transient 03/03/2018 chest pain and shortness of breath requiring IV NS 125 ml/hr. infusion 03/03/2018 to 03/04/2018 AM, ongoing IV Ceftriaxone QD, comorbid history- patient sent from Dr. Tevin Garber's office 03/03/2018 to [facility] ED for hypotension and UTI just prior to this admission, prostate cancer. anticipates > 2 [place] LOS for ongoing med nec for eval and TX of above.
[2018-03-04] MEDS ORDERED: NS 500 ML IV ONE (13:39)
[2018-03-04] MEDS ORDERED: IOPAMIDOL (ISOVUE 370) 100 ML BTL IV ONE (13:54)
--- NOTE | 2018-03-04 16:26 | ASMTCMCOM ---
CM Note CM Note Notes: Met with pt and discussed his hx of prostate ca. Gave pt suggestions on getting is $150,000 cost from his immunotherapy drug decreased. Pt otherwise has no DC needs. Date Signed: 03/04/2018 02:49 PM Electronically Signed By:Chary Clark LCSW
--- NOTE | 2018-03-04 16:34 | SOAPPROG ---
SOAP Progress Note Assessment/Plan: Assessment: Prostate cancer Acute on LHRH and provenge with plans for IMRT in May Renal insufficiency Acute dehydration most likely contributing factor Elevated d-dimer Acute blood clot yet may be related to central line catheter UTI (urinary tract infection) Acute initial 24 hours no growth Plan: Will follow peripherally and appreciate care provided by [facility] health care staff 03/04/18 16:33 Subjective: better Objective: Vital Signs Temp Pulse Resp BP Pulse Ox 36.6 C 92 17 112/70 94 03/04/18 15:13 03/04/18 15:13 03/04/18 15:13 03/04/18 15:13 03/04/18 15:13 Laboratory Results 03/04/18 04:08 03/04/18 04:08 03/03/18 03/04/18 03/05/18 05:59 05:59 05:59 Intake Total 1425 Output Total 1450 950 Balance -25 -950 Physical Exam - Physical Exam General Appearance: alert Respiratory: No respiratory distress Cardiac/Chest: regular rate, rhythm Abdomen: soft Neuro/Psych: alert, oriented x 3 ICD10 Worksheet Patient Problems: Problems Problem Status Onset Elevated d-dimer Acute Prostate cancer Acute Renal insufficiency Acute UTI (urinary tract infection) Acute
[2018-03-05] MEDS: ACETAMINOPHEN 325 MG TAB PO PRN (02:47)
[2018-03-05 05:13] LABS: PLATELET COUNT 111 10^3/uL (150-400)
[2018-03-05] MEDS: ENOXAPARIN 40 MG/0.4 ML SYR SC SCH (08:45)
[2018-03-05] MEDS ORDERED: oxyCODONE IR 5 MG TAB PO ONE (09:30)
[2018-03-05] MEDS ORDERED: FUROSEMIDE 20 MG/2 ML VIAL IVP ONE (09:33)
[2018-03-05] MEDS ORDERED: IBUPROFEN 600 MG TAB PO ONE (09:33)
--- NOTE | 2018-03-05 11:03 | ASMTCMCOM ---
CM Note CM Note Notes: Chart reviewed. Patient has been medically cleared for discharge to home with no identified neeeds. CM availble should needs arise. Plan: Home no needs Date Signed: 03/05/2018 11:02 AM Electronically Signed By:Jasmyn Byrd RN
--- NOTE | 2018-03-05 11:14 | PDDCSUM ---
Discharge Summary Discharge Summary: 52 yo male sent from Dr. Peoples office due to Hypotension and UTI. He was admitted and had Likely sepsis (hypotension, leukocytosis, acute renal failure, infection, tachycardia). He was treated with Rocephin. BP, tachycardia, and malaise have improved. He is slightly edematous and was given Lasix IV x 1 on the day of discharge with significant improvement. From an infection standpoint he is better. [facility] He will f/u with Dr. Garber on Tuesday. DDX: #Likely sepsis (hypotension, leukocytosis, acute renal failure, infection, tachycardia) #Hypotension, BP now normal #Peripheral edema, likely due to volume administration, Lasix x 1 today #elevated D-Dimer, negative CTA of the chest. on #UTI #Prostate Ca #acute renal failure, resolved Exam: VSS NAD AAOX3 RRR CTAB S/NT/ND NO LE EDEMA MEDS: SEE MED REC F/U: PER ABOVE TOTAL TIME SPENT ON D/C IS 35 MINS. D/W NURSE, THE PT, AND HIS . ALL ARE IN AGREEMENT WITH D/C.
[2018-03-05 12:18] VITALS: BP 113/76
[2018-05-01] MEDS ORDERED: LEUPROLIDE ACETATE 22.5 MG IM SCH (09:00)
== END 2018-03-05 12:40 | disposition home or self-care (01) | DRG 872 ==
LOC: OBSVTOIN 11:28 → F1N 12:09
PROVIDERS: ADMIT Internal Medicine; ATTEND Internal Medicine
DX: A41.9 Sepsis, unspecified organism (principal); N39.0 Urinary tract infection, site not specified; N17.9 Acute kidney failure, unspecified; I95.9 Hypotension, unspecified; Z87.891 Personal history of nicotine dependence; Z85.46 Personal history of malignant neoplasm of prostate
CPT/HCPCS: G0378; J0696; J1650; J1940; Q9967

== ENCOUNTER 2018-03-17 13:47 | Day surgery (SDC) | payer OTHER ==
[2018-03-17] MEDS ORDERED: FLUMAZENIL 0.5 MG/5 ML MDV IVP ONE (14:38)
[2018-03-17] MEDS ORDERED: NALOXONE HCL 0.4 MG/ML INJ ONE (14:38)
[2018-03-17] MEDS ORDERED: fentaNYL 100 MCG/2 ML INJ ONE (14:39)
[2018-03-17] MEDS ORDERED: MIDAZOLAM 2 MG/2 ML VIAL ONE (14:39)
[2018-03-17] MEDS ORDERED: FLUMAZENIL 0.5 MG/5 ML MDV IVP PRN (14:46)
[2018-03-17] MEDS ORDERED: MIDAZOLAM 2 MG/2 ML VIAL IVP PRN (14:46)
[2018-03-17] MEDS ORDERED: NALOXONE HCL 0.4 MG/ML INJ IVP PRN (14:46)
[2018-03-17] MEDS ORDERED: ONDANSETRON 4 MG/2 ML VIAL IVP ONE (14:46)
[2018-03-17] MEDS ORDERED: MEPERIDINE 25 MG/ML SYR IVP PRN (14:46)
[2018-03-17] MEDS ORDERED: fentaNYL 100 MCG/2 ML INJ IVP PRN (14:46)
[2018-03-17] MEDS ORDERED: LIDOCAINE 1% 300 MG/30 ML SDV ONE (14:57)
[2018-03-17] MEDS ORDERED: NS 1,000 ML IV SCH (15:00)
--- NOTE | 2018-03-17 15:34 | PDRADPN ---
Radiology Procedure Note Date of Procedure: 03/17/18 Radiologist: Mal Pickett Anesthesia: IV Sedation, Local (Specify) Pre-op Diagnosis: tunneled pheresis cath Post-op Diagnosis: same Indication: pheresis completed Procedure: removal Finding(s): retention cuff of RIJ perm cath freed easily. catheter removed intact. Inf/Abcess present in the surg proc area at time of surgery?: No EBL: Minimal Complications: none
[2018-03-17] MEDS ORDERED: ACETAMINOPHEN 325 MG TAB ONE (15:36)
[2018-03-17] MEDS ORDERED: diphenhydrAMINE 25 MG CAP PO ONE ×2 (15:36→16:00)
[2018-03-17] MEDS: ACETAMINOPHEN 325 MG TAB PO ONE ×2 (15:49→16:07)
[2018-03-17] MEDS ORDERED: diphenhydrAMINE 50 MG CAP PO ONE (16:00)
[2018-03-17] MEDS ORDERED: ACETAMINOPHEN 500 MG TAB PO ONE (16:00)
[2018-03-17 16:09] VITALS: BP 96/55
== END 2018-03-17 16:40 | disposition home or self-care (01) ==
LOC: FIMAGING 13:47
PROVIDERS: ATTEND Specialist
PROC: 0JPT0XZ Removal of Tunneled Vascular Access Device from Trunk Subcutaneous Tissue and Fascia, Open Approach (ICD-10-PCS; principal; 2018-03-17)
DX: Z49.01 Encounter for fitting and adjustment of extracorporeal dialysis catheter (principal); C61 Malignant neoplasm of prostate
CPT/HCPCS: J2250; J2310; J3010